=== PATIENT | female | born 1950 | race Caucasian/White ===

== ENCOUNTER 2022-10-04 13:20 | Emergency (ER) | payer MEDICARE | END 2022-10-04 15:23 | disposition home or self-care (01) | LOC: JP.ED 13:20 | DX: K25.7 Chronic gastric ulcer without hemorrhage or perforation (principal); E11.9 Type 2 diabetes mellitus without complications; E66.9 Obesity, unspecified; Z68.42 Body mass index [BMI] 45.0-49.9, adult; Z79.01 Long term (current) use of anticoagulants; Z79.899 Other long term (current) drug therapy; Z79.84 Long term (current) use of oral hypoglycemic drugs; Z88.8 Allergy status to other drugs, medicaments and biological substances; Z88.5 Allergy status to narcotic agent; Z88.0 Allergy status to penicillin; Z88.1 Allergy status to other antibiotic agents | CPT/HCPCS: 99282; 99284 ==

== ENCOUNTER 2022-10-05 10:45 | Emergency (ER) | payer MEDICARE ==
[2022-10-05 11:25] LABS: HEMATOCRIT 40.3 % (34.3-46.0); HEMOGLOBIN 13.1 g/dL (11.2-15.5); MEAN CORPUSCULAR HEMOGLOBIN 32.7 pg (31.6-35.5); MEAN CORPUSCULAR HGB CONC 32.5 g/dL (31.6-35.5); MEAN CORPUSCULAR VOLUME 100.5 fL (81.4-99.0); RED BLOOD CELL COUNT 4.01 M/uL (3.77-5.24); WHITE BLOOD CELL COUNT,WBC 9.1 K/uL (3.2-11.0)
[2022-10-05 11:42] LABS: INR 1.1
== END 2022-10-05 12:17 | disposition home or self-care (01) ==
LOC: JP.ED 10:45
DX: L98.499 Non-pressure chronic ulcer of skin of other sites with unspecified severity (principal); E66.9 Obesity, unspecified; Z68.42 Body mass index [BMI] 45.0-49.9, adult; Z88.5 Allergy status to narcotic agent; Z88.8 Allergy status to other drugs, medicaments and biological substances; Z88.0 Allergy status to penicillin; Z88.1 Allergy status to other antibiotic agents; Z79.82 Long term (current) use of aspirin; Z79.899 Other long term (current) drug therapy
CPT/HCPCS: 36415; 85027; 85610; 99284

== ENCOUNTER 2023-05-13 14:58 | Inpatient (IN) | payer MEDICARE, MEDICAID ==
[2023-05-13] MEDS ORDERED: Sennosides/Docusate Sodium 50-8.6 MG Tab PO PRN (15:09)
[2023-05-13] MEDS ORDERED: Lactated Ringers 1,000 ML IV SCH ×2 (15:15→19:15)
[2023-05-13 15:29] LABS: BASOPHILS ABSOLUTE AUTO 0.03 K/uL (0.00-0.10); BASOPHILS PERCENT AUTO 0.3 % (0.1-1.3); EOSINOPHILS ABSOLUTE AUTO 0.12 K/uL (0.00-0.40); HEMATOCRIT 38.7 % (34.3-46.0); HEMOGLOBIN 12.3 g/dL (11.2-15.5); IMMATURE GRAN ABSOLUTE AUTO 0.03 K/uL (0.00-0.23); IMMATURE GRAN PERCENT AUTO 0.3 % (0.0-0.7); LYMPHOCYTES ABSOLUTE AUTO 3.28 K/uL (0.8-3.3); LYMPHOCYTES PERCENT AUTO 27.6 % (11.4-47.7); MEAN CORPUSCULAR HEMOGLOBIN 32.8 pg (31.6-35.5); MEAN CORPUSCULAR HGB CONC 31.8 g/dL (31.6-35.5); MEAN CORPUSCULAR VOLUME 103.2 fL (81.4-99.0); MONOCYTES ABSOLUTE AUTO 0.78 K/uL (0.20-0.90); MONOCYTES PERCENT AUTO 6.6 % (3.3-12.6); NEUTROPHILS ABSOLUTE AUTO 7.63 K/uL (1.0-7.6); NEUTROPHILS PERCENT AUTO 64.2 % (40.0-78.1); PLATELET COUNT,PLT 256 K/uL (130-375); RED BLOOD CELL COUNT 3.75 M/uL (3.77-5.24); WHITE BLOOD CELL COUNT,WBC 11.9 K/uL (3.2-11.0)
[2023-05-13 15:45] LABS: INR 1.1; PROTHROMBIN TIME 10.7 sec (9.2-10.6)
[2023-05-13 15:49] LABS: A/G RATIO 0.6 (1.2-2.2); ALANINE AMINOTRANSFERASE,ALT 18 U/L (12-78); ALKALINE PHOSPHATASE 94 U/L (46-116); ASPARTATE AMNIOTRANSFERASE,AST 21 U/L (15-37); BILIRUBIN TOTAL 0.5 mg/dL (0.2-1.0); BLOOD UREA NITROGEN,BUN 48 mg/dL (7-18); CALCIUM 9.7 mg/dL (8.5-10.1); CARBON DIOXIDE,CO2 38 mmol/L (21-32); CHLORIDE,CL 93 mmol/L (100-108); CREATININE 1.6 mg/dL (0.6-1.0); ESTIMATED GFR 34 mL/min (>60); GLUCOSE RANDOM 103 mg/dL (74-106); POTASSIUM,K 4.9 mmol/L (3.6-5.2); PROTEIN TOTAL,TP 7.8 g/dL (6.4-8.2); SODIUM,NA 134 mmol/L (140-148)
[2023-05-13 15:52] LABS: ANION GAP 7.9 mmol/L (5.0-14.0)
[2023-05-13] MEDS ORDERED: 50% Dextrose in Water 50 ML Syringe IVPUSH PRN (16:10)
[2023-05-13] MEDS ORDERED: Glucagon,Human Recombinant 1 MG Vial IM PRN (16:10)
[2023-05-13 16:23] LABS: CORONAVIRUS COVID-19 NAA NEGATIVE (NEGATIVE); INFLUENZA A NAA NEGATIVE (NEGATIVE); INFLUENZA B NAA NEGATIVE (NEGATIVE); RESPIRATORY SYNCYTIAL VIR NAA NEGATIVE (NEGATIVE)
[2023-05-13] MEDS ORDERED: Albuterol 6.7 GM Inhaler INH PRN (16:58)
[2023-05-13] MEDS ORDERED: Vancomycin 1 GM SDV IV SCH (17:00)
[2023-05-13] MEDS ORDERED: Insulin Lispro 100 Unit/ML 3 ML KwikPen SUBCUT SCH (17:00)
[2023-05-13] MEDS: Acetaminophen 500 MG Tab PO SCH ×2 (17:50→23:56)
[2023-05-13] MEDS: Piperacillin/Tazobactam 3.375 GM in Sodium Chloride 0.9% 50 ML IV SCH ×2 (17:59→22:30)
[2023-05-13] MEDS ORDERED: Vancomycin 2 GM in Sodium Chloride 0.9% 500 ML IV ONE (18:00)
[2023-05-14] MEDS: Piperacillin/Tazobactam 3.375 GM in Sodium Chloride 0.9% 50 ML IV SCH ×2 (04:44→10:55)
[2023-05-14 06:35] LABS: HEMATOCRIT 36.7 % (34.3-46.0); HEMOGLOBIN 11.7 g/dL (11.2-15.5); MEAN CORPUSCULAR HEMOGLOBIN 33.2 pg (31.6-35.5); MEAN CORPUSCULAR HGB CONC 31.9 g/dL (31.6-35.5); MEAN CORPUSCULAR VOLUME 104.3 fL (81.4-99.0); RED BLOOD CELL COUNT 3.52 M/uL (3.77-5.24); WHITE BLOOD CELL COUNT,WBC 10.7 K/uL (3.2-11.0)
[2023-05-14] MEDS ORDERED: Bupivacaine 0.5% 50 ML MDV ONE (06:45)
[2023-05-14] MEDS ORDERED: Lidocaine 1% with EPINEPHrine 1:100,000 50 ML MDV ONE (06:45)
[2023-05-14 06:53] LABS: CALCIUM 9.5 mg/dL (8.5-10.1); CREATININE 1.4 mg/dL (0.6-1.0); EST CRCL DRUG DOSING (CG) 36.64 mL/min; MAGNESIUM 2.1 mg/dL (1.8-2.4); PHOSPHORUS 3.5 mg/dL (2.5-4.9)
[2023-05-14] MEDS: Acetaminophen 500 MG Tab PO SCH ×2 (11:45→16:14)
[2023-05-14] MEDS ORDERED: Aspirin 81 MG Tab.EC PO SCH (12:45)
[2023-05-14] MEDS ORDERED: Losartan 50 MG Tab PO SCH (12:45)
[2023-05-14] MEDS ORDERED: Chlorthalidone 25 MG Tab PO SCH (12:45)
[2023-05-14] MEDS: Sulfamethoxazole/Trimethoprim 800-160 MG Tab PO SCH ×2 (12:54→20:02)
[2023-05-14] MEDS ORDERED: ACEBUTOLOL 200 MG PO SCH ×2 (15:00→15:30)
[2023-05-14] MEDS ORDERED: metFORMIN 500 MG Tab PO SCH (17:00)
[2023-05-14] MEDS ORDERED: oxyCODONE 5 MG Tab PO PRN (20:20)
[2023-05-14] MEDS ORDERED: EPINEPHrine 1:10,000 1 MG/10 ML Syringe IV ONE (22:45)
[2023-05-14] MEDS ORDERED: Sodium Bicarbonate 8.4% 50 MEQ/50 ML Syringe IVPUSH ONE (23:03)
[2023-05-14 23:04] LABS: HEMATOCRIT 41.8 % (34.3-46.0); HEMOGLOBIN 12.7 g/dL (11.2-15.5); MEAN CORPUSCULAR HEMOGLOBIN 32.8 pg (31.6-35.5); MEAN CORPUSCULAR HGB CONC 30.4 g/dL (31.6-35.5); RED BLOOD CELL COUNT 3.87 M/uL (3.77-5.24)
[2023-05-14 23:06] LABS: BASE EXCESS ARTERIAL -3.7 mm/L; BICARBONATE,ARTERIAL 30.1 mmol/L (22.0-26.0); CARBOXYHEMOGLOBIN 1.9 % (0.0-1.6); METHEMOGLOBIN 0.7 %; O2 SATURATION ARTERIAL 93.9 % (95.0-98.0); OXYHEMOGLOBIN 91.5 %; PO2 ARTERIAL 94.2 mmHg (75.0-100.0); TOTAL HEMOGLOBIN 13.3 g/dL (12.0-16.0)
[2023-05-14] MEDS ORDERED: Rocuronium 50 MG/5 ML Vial IVPUSH ONE (23:06)
[2023-05-14] MEDS ORDERED: Rocuronium 50 MG/5 ML Vial ONE (23:06)
[2023-05-14] MEDS ORDERED: Calcium Gluconate 10% 1 GM/10 ML SDV ONE (23:19)
[2023-05-14] MEDS ORDERED: Calcium Chloride 10% 1 GM/10 ML Syringe IV ONE (23:19)
[2023-05-14 23:24] LABS: CALCIUM 9.9 mg/dL (8.5-10.1); CREATININE 1.8 mg/dL (0.6-1.0); EST CRCL DRUG DOSING (CG) 28.5 mL/min; TROPONIN I HIGH SENSITIVITY 34.7 pg/mL (<=60.3)
[2023-05-14 23:25] LABS: ANION GAP 13.1 mmol/L (5.0-14.0); POTASSIUM,K 6.1 mmol/L (3.6-5.2)
[2023-05-15] MEDS ORDERED: Rosuvastatin 10 MG Tab PO SCH (09:00)
== END 2023-05-15 00:16 | disposition home or self-care (01) | DRG 264 ==
LOC: JP.ICU 14:58
PROVIDERS: ADMIT Student in an Organized Health Care Education/Training Program; ATTEND Student in an Organized Health Care Education/Training Program
PROC: 0JB90ZZ Excision of Buttock Subcutaneous Tissue and Fascia, Open Approach (ICD-10-PCS; principal; 2023-05-13)
PROC: 5A1221J Performance of Cardiac Output, Continuous, Automated (ICD-10-PCS; 2023-05-14)
PROC: 3E033XZ Introduction of Vasopressor into Peripheral Vein, Percutaneous Approach (ICD-10-PCS; 2023-05-14)
DX: E11.52 Type 2 diabetes mellitus with diabetic peripheral angiopathy with gangrene (principal); I46.9 Cardiac arrest, cause unspecified; L89.313 Pressure ulcer of right buttock, stage 3; I96 Gangrene, not elsewhere classified; I13.0 Hypertensive heart and chronic kidney disease with heart failure and stage 1 through stage 4 chronic kidney disease, or unspecified chronic kidney disease; I50.30 Unspecified diastolic (congestive) heart failure; L03.317 Cellulitis of buttock; Z68.42 Body mass index [BMI] 45.0-49.9, adult; N17.9 Acute kidney failure, unspecified; Z66 Do not resuscitate; I25.10 Atherosclerotic heart disease of native coronary artery without angina pectoris; E66.01 Morbid (severe) obesity due to excess calories; N18.9 Chronic kidney disease, unspecified; E11.22 Type 2 diabetes mellitus with diabetic chronic kidney disease; I27.20 Pulmonary hypertension, unspecified; I08.8 Other rheumatic multiple valve diseases; Z86.711 Personal history of pulmonary embolism; Z79.01 Long term (current) use of anticoagulants; Z88.8 Allergy status to other drugs, medicaments and biological substances; Z88.1 Allergy status to other antibiotic agents; Z79.82 Long term (current) use of aspirin; Z79.899 Other long term (current) drug therapy; Z79.84 Long term (current) use of oral hypoglycemic drugs; Z98.890 Other specified postprocedural states; Z99.81 Dependence on supplemental oxygen; Z11.52 Encounter for screening for COVID-19; Z99.3 Dependence on wheelchair; Z86.14 Personal history of Methicillin resistant Staphylococcus aureus infection
CPT/HCPCS: 0241U; 36415; 36600; 80048; 80053; 80202; 82803; 83605; 83735; 84100; 84484; 85025; 85027; 85610; 87070; 87077; 87186; 87205; 93005; 93306; A9270-GY; J2543; J3370; J3490; J7040; J7120